=== PATIENT | male | born 1945 | race Caucasian/White ===

== ENCOUNTER 2020-05-04 19:35 | Emergency (ER) | payer MEDICARE, OTHER ==
[~2020-05-04] VITALS: Ht 177.8 cm; Wt 113.4 kg
--- NOTE | 2020-05-04 19:35 | NUR ---
PT BIBA ALS FULL ARREST. TAKEN TO BED 5. DR. RODRIGUEZ AND RT AT BEDSIDE
--- NOTE | 2020-05-04 19:35 | NUR ---
REFERENCE CODE BLUE SHEET
--- NOTE | 2020-05-04 19:38 | NUR ---
TIME OF CALLED BY DR. RODRIGUEZ 1937
--- NOTE | 2020-05-04 19:44 | NUR ---
DR. RODRIGUEZ SPEAKING WITH PT FAMILY
--- NOTE | 2020-05-04 20:06 | NUR ---
CALLED [facility] OFFICE AND SPOKE WITH BRANT, [facility] NOTIFIED OF PT . [facility] WILL CALL BACK.
--- NOTE | 2020-05-04 20:30 | NUR ---
SPOKE WITH JORDAN FROM THE [facility] OFFICE, SHE REQUESTED PMH, MEDICATIONS, AND PCP PMH: SCHIZOPHRENIA PCP: KRISTEN WEEKS [phone]
--- NOTE | 2020-05-04 20:45 | NUR ---
SPOKE WITH PT'S BROTHER JEFFREY CHICAS TO OBTAIN PCP, PMH, AND MED LIST ALONG WITH DESIRED HOME. MED LIST: PALIPERIDONE, FLUPHENAZINE, DEPAKOTE, SIMVASTATIN, TAMSULOSIN, VENLAFAXINE
--- NOTE | 2020-05-04 21:10 | NUR ---
SPOKE WITH MYNOR RAPP [facility] OFFICE, SHE STATED IT WILL BE A CLINICAL APPEALS REVIEWER'S CASE AND THAT SHE WILL SEND TRANSPORT TO [facility]. CASE#[id number]
--- NOTE | 2020-05-04 21:42 | NUR ---
SPOKE WITH JANE FROM [facility] TO REPORT PT --- [facility] CASE #[id number]
--- NOTE | 2020-05-04 22:31 | NUR ---
CALLED AND SPOKE WITH THE PRIMARY CARE PHYSICIAN- TO NOTIFY HIM OF THE PATIENT'S .
--- NOTE | 2020-05-04 22:35 | NUR ---
[facility] AT BEDSIDE
--- NOTE | 2020-05-04 22:54 | NUR ---
PT TAKEN BY FRONT DESK RECEPTIONIST TOY
--- NOTE | 2020-05-04 22:55 | NUR ---
GAVE THE PT'S BROTHER JEFFREY CHICAS- THE PT'S YELLOW NECKLACE WITH A CROSS ON IT
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
== END 2020-05-04 19:38 ==
LOC: MED 19:35 → EDBD 19:35 → MED 19:38
DX: I46.9 Cardiac arrest, cause unspecified (principal); F20.9 Schizophrenia, unspecified
CPT/HCPCS: 99291